=== PATIENT | male | born 1975 | race Hispanic/Latino ===

== ENCOUNTER → 2023-12-30 15:01 | Outpatient (CLI) | payer OTHER, SELFPAY ==
--- NOTE | 2023-12-30 15:07 | DI.RAD.S_ITS ---
PROCEDURE: XR ANKLE LT 2V INDICATIONS: ARTHRITIS TECHNIQUE: 2 views of the ankle were acquired. COMPARISON: None. FINDINGS: Bones: No fractures or dislocations. Ankle mortise is normally aligned. No suspicious bony lesions. Soft tissues: No tibiotalar joint effusion. Achilles tendon appears normal. Soft tissue calcification along the dorsal surface the talus. 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 Dictated by: Troy Fang M.D. on 12/30/2023 at 16:50 Approved by: Troy Fang M.D. on 12/30/2023 at 16:52
--- NOTE | 2023-12-30 15:07 | DI.RAD.S_ITS ---
PROCEDURE: XR HAND RT 2V INDICATIONS: ARTHRITIS TECHNIQUE: 2 views of the hand(s) acquired. COMPARISON: None. FINDINGS: Bones: No fractures or dislocations. Carpal bones are normally aligned. No suspicious bony lesions. Soft tissues: No suspicious soft tissue calcifications. IMPRESSION: No acute bony abnormality. No significant osteoarthritis. Dictated by: Troy Fang M.D. on 12/30/2023 at 16:53 Approved by: Troy Fang M.D. on 12/30/2023 at 16:54
--- NOTE | 2023-12-30 15:07 | DI.RAD.S_ITS ---
PROCEDURE: XR ANKLE RT 2V INDICATIONS: ARTHRITIS TECHNIQUE: 2 views of the ankle were acquired. COMPARISON: None. FINDINGS: Bones: No fractures or dislocations. Ankle mortise is normally aligned. No suspicious bony lesions. Soft tissues: No tibiotalar joint effusion. Achilles tendon appears normal. IMPRESSION: No acute bony abnormality or significant effusion. Dictated by: Troy Fang M.D. on 12/30/2023 at 16:52 Approved by: Troy Fang M.D. on 12/30/2023 at 16:52
--- NOTE | 2023-12-30 15:07 | DI.RAD.S_ITS ---
PROCEDURE: XR HAND LT 2V INDICATIONS: ARTHRITIS TECHNIQUE: 2 views of the hand(s) acquired. COMPARISON: None. FINDINGS: Bones: No fractures or dislocations. Carpal bones are normally aligned. No suspicious bony lesions. Soft tissues: No suspicious soft tissue calcifications. IMPRESSION: No acute bony abnormality. No significant osteoarthritis. Dictated by: Troy Fang M.D. on 12/30/2023 at 16:53 Approved by: Troy Fang M.D. on 12/30/2023 at 16:53
== END ==
LOC: RAD 15:05
PROVIDERS: Referring Provider Chiropractor; Visit Provider Chiropractor
DX: M13.80 Other specified arthritis, unspecified site (principal)
CPT/HCPCS: 73120; 73600